=== PATIENT | female | born 1990 | race Caucasian/White ===

== ENCOUNTER 2019-01-01 12:05 | Emergency (ER) | payer OTHER ==
[~2019-01-01] VITALS: Ht 165.1 cm; Wt 67.1 kg
[~2019-01-01 12:05] MED LIST: ACYCLOVIR 800800 MG PO; NORCO 5-325 TA1 EACH PO
[2019-01-01] MEDS ORDERED: SPIRONOLACTONE100 M4 PO (12:15)
[2019-01-01 12:42] LABS: HEMATOCRIT 39.8 % (37.0-47.0); HEMOGLOBIN 13.3 gm/dL (12.0-15.0); MCH 30.6 pg (26.0-34.0); MCHC 33.3 g/dL (28.0-37.0); MCV 91.8 fL (80.0-100.0); MPV 7.1 fl. (7.2-11.1); RBC 4.34 mil/uL (4.20-5.00); RDW-CV 12.8 % (10.5-14.5); WBC 11.1 thou/uL (4.0-11.0)
[2019-01-01 12:51] LABS: APTT 29.4 Seconds (25.0-31.3); PROTIME 9.8 Seconds (9.20-11.50)
[2019-01-01 12:59] LABS: ALBUMIN 4.1 g/dL (3.4-5.0); ALKALINE PHOSPHATASE 44 U/L (46-116); ANION GAP 10 mmol/L (7-16); BUN 9 mg/dL (7-18); CALCIUM 9.2 mg/dL (8.5-10.1); CHLORIDE 105 mmol/L (98-107); CO2 28 mmol/L (21-32); CREATININE 0.7 mg/dL (0.6-1.3); GLUCOSE 98 mg/dL (70-99); POTASSIUM 3.8 mmol/L (3.5-5.1); SGOT 19 U/L (15-37); SGPT 25 U/L (30-65); SODIUM 143 mmol/L (136-145); TOTAL BILIRUBIN 0.2 mg/dL (<0.1-1.0); TOTAL PROTEIN 7.8 g/dL (6.4-8.2); TROPONIN-I LEVEL <0.06 ng/mL (<0.06)
[2019-01-01 13:23] LABS: POC CA IONIZED 4.8 mg/dL (4.5-5.3); POC CREATININE 0.5 mg/dL (0.6-1.3); POC HEMOGLOBIN 14.3 g/dL (12.0-17.0); POC POTASSIUM 3.9 mmol/L (3.5-4.9)
[2019-01-01 13:26] LABS: URINE BILIRUBIN NEGATIVE (Negative); URINE BLOOD NEGATIVE (Negative); URINE CLARITY CLEAR; URINE COLOR YELLOW; URINE GLUCOSE-RANDOM NEGATIVE (Negative); URINE KETONES NEGATIVE (Negative); URINE LEUKOCYTES NEGATIVE (Negative); URINE NITRITE NEGATIVE (Negative); URINE PROTEIN NEGATIVE (Negative); URINE SPECIFIC GRAVITY <= 1.005 (1.005-1.030); URINE UROBILINOGEN 0.2 E.U./dl (0.2-1.0)
[2019-01-01 14:13] VITALS: BP 104/61
--- NOTE | 2019-01-01 16:34 | EKG ---
[place] [address] ELECTROCARDIOGRAM REPORT Name: LILLIAN RUDOLPH Room: [facility]#: [id number] Admission: 01/01/19 Attend Phys: Discharge: 01/01/19 Date of : 86 Report #: [id number] THIS REPORT FOR: //name// [facility] ED Test Date: 2019-01-01 Test Time: 13:02:14 Pat Name: LILLIAN RUDOLPH Department: Room: Gender: F Calender Tender: Kike TRENT : 1990 Requested By: Sheldon Márquez Order Number: [id number] MD: Rogerio Love Measurements Intervals [place] Rate: 88 P: 70 [place]: 169 QRS: 59 QRSD: 88 T: 43 QT: 356 QTc: 431 Interpretive Statements Sinus rhythm No previous ECG available for comparison Electronically Signed On 01-01-2019 16:34:04 CDT by Rogerio Love [email or web address] <ELECTRONICALLY SIGNED> By: Rogerio Love MD, FAC 01/01/19 1634 1302 1302 Rogerio Love MD, FACC /EPI
== END 2019-01-01 14:14 | disposition home or self-care (01) ==
LOC: M.ERS 12:05
PROVIDERS: Emergency Medicine
DX: G45.9 Transient cerebral ischemic attack, unspecified (principal); G43.909 Migraine, unspecified, not intractable, without status migrainosus

== ENCOUNTER → 2019-02-01 | Outpatient (CLI) | payer OTHER ==
[~2019-02-01] MED LIST changes: +SPIRONOLACTONE100 M4 PO
== END ==
LOC: M.LAB 01-14 13:38
PROVIDERS: Psychiatry & Neurology Neuromuscular Medicine
DX: G45.9 Transient cerebral ischemic attack, unspecified (principal); R93.89 Abnormal findings on diagnostic imaging of other specified body structures; Z86.69 Personal history of other diseases of the nervous system and sense organs